=== PATIENT | female | born 1990 | race Caucasian/White ===

== ENCOUNTER 2020-01-06 06:07 | Inpatient (IN) | payer MEDICAID, SELFPAY ==
[2020-01-06] VITALS (40 sets, daily range): BP systolic 0–153; BP diastolic 0–86; PULSE 48–92; RESP 15–16; TEMP 36.6–36.8; O2SAT 98–100; BMI 28.0
[2020-01-06 07:17] LABS: Basophils # 0.1 10^3/uL (0.0-0.1); Basophils % 0.4 %; Eosinophils # 0.3 10^3/uL (0.0-0.8); Eosinophils % 2.4 %; Hematocrit 33.4 % (37.0-47.0); Hemoglobin 10.6 g/dL (11.5-15.3); Lymphocytes # 3.1 10^3/uL (0.8-4.8); Lymphocytes % 26.6 %; Mean Corpuscular HGB Conc 31.7 g/dL (30.0-36.0); Mean Corpuscular Hemoglobin 27.6 pg (28.0-34.0); Mean Platelet Volume 11.5 fL (7.4-10.4); Monocytes # 0.9 10^3/uL (0.2-0.9); Neutrophils # 7.2 10^3/uL (1.8-7.7); Neutrophils % 62.3 %; Nucleated Red Blood Cells % 0 %; Platelet Count 208 10^3/cmm (130-400); Red Blood Count 3.84 10^6/uL (4.1-5.3); Red Cell Distribution Width 13.5 % (12.1-15.1); White Blood Count 11.6 10^3/uL (4.0-10.0)
[2020-01-06] MEDS: miSOPROStol 100 mcg tablet 25 MCG VAGINAL ×3 (07:28→16:54)
--- NOTE | 2020-01-06 11:36 | PC.NURSE ---
Pt states her oldest 2 children are located in [place] and have been adopted. 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 She stated one night her children got out of the hotel room and the front counter attendant called GINNY and the children were taken into custody and she was positive for drugs. She stated she never fought to get her oldest 2 children back but stated with her last child, GINNY did a walk through of her house.
[2020-01-06] MEDS: lactated ringers 1,000 ML 999 ML IV ×2 (11:50→21:59)
--- NOTE | 2020-01-06 15:00 | PC.NURSE ---
Prescription for Macrobid called into [facility].
--- NOTE | 2020-01-06 21:44 | P.ANESUD_ITS ---
Pre-Anesthetic Update Pre-Anesthetic Assessment: Date of Surgery/Procedure: 01/06/20 Preop Rizwana gnosis: IUP Any changes to Pre-Anesthetic Assessment?: No Labs Last 48hrs: Laboratory Results - last 48 hr 01/06/20 06:35 WBC 11.6 H RBC 3.84 L Hgb 10.6 L Hct 33.4 L MCV 87.0 MCH 27.6 L MCHC 31.7 RDW 13.5 Plt Count 208 MPV 11.5 H Neut % (Auto) 62.3 Lymph % (Auto) 26.6 [place] % (Auto) 8.0 Eos % (Auto) 2.4 Baso % (Auto) 0.4 Neut # (Auto) 7.2 Lymph # (Auto) 3.1 [place] # (Auto) 0.9 Eos # (Auto) 0.3 Baso # (Auto) 0.1 Nucleated RBC % (a uto) 0 Nucleated RBCs # 0.0 Vitals: Temperature 98.2 F 01/06/20 20:30 Temperature Source Oral 01/06/20 20:30 Pulse Rate 66 01/06/20 22:17 Pulse Rhythm 01/06/20 06:37 Pulse Strength 3+ Normal 01/06/20 06:37 Respiratory Rate 16 01/06/20 20:30 Respiratory Effort Non-Labored 01/06/20 06:37 Respiratory Depth Normal 01/06/20 06:37 Respiratory Patter n 01/06/20 06:37 Blood Pressure 112/70 01/06/20 22:17 Blood Pressure Mohini n 85 01/06/20 22:17 Pulse Oximetry 98 01/06/20 22:04 Oxygen Delivery Me thod 01/06/20 06:37 Cardiac Studies: No Data to Display
--- NOTE | 2020-01-06 22:20 | ANES.PROC ---
Anesthesia Procedures Procedure/Date: 01/06/20 Epidural: Time Out Performed: Yes Consents Signed: Procedure Consent Consent: requested by attending/covering physician Lumbar Level: L3-L4 Epidural position: sitting Epidural procedure: sterile prep of area, 1% lidocaine to numb the area, 18 g needle, negative for paresthesia passed, neg for paresthesia, test dose given, 1.5% xylocaine 1:200k epi (5ml), placed PCEA, no systemic response, sterile dressing applied, L.U.D. no apparent complications and 0.2% Ropiavacaine @ mls/hr (13)
[2020-01-07] VITALS (76 sets, daily range): BP systolic 0–149; BP diastolic 0–89; PULSE 51–110; RESP 15–18; TEMP 36.7–37
[2020-01-07] MEDS: dextrose 5%-lactated ringers 1,000 ML 125 ML IV ×2 (00:38→08:03)
[2020-01-07] MEDS: oxytocin 30 UNIT/500 ML BAG IV (06:58)
--- NOTE | 2020-01-07 11:57 | PM.DELIVERY ---
 Delivery Note: Date of delivery: January 07, 2020 This 29-year-old 4 now para 4 female was admitted on 01/06/2020 for misoprostol cervical ripening for postdates . She was given a total of 3 doses of misoprostol throughout the day on the day of admission with the third dose creating increased contractions and dilatation. She was given epidural anesthesia when uncomfortable and dilated very slowly throughout the night to approximately 6 cm dilated when she was checked by this physician in the morning. Artificial rupture membranes was accomplished with Pitocin augmentation and the patient went more rapidly to complete cervical dilatation. She was found to be completely dilated at 1038 and delivered by spontaneous vaginal delivery at 1047 a healthy appearing viable male infant. Upon delivery of the head, the mouth and nose were suctioned followed by delivery of the remainder of the . The had a fairly tight nuchal cord x1 and therefore the infant was delivered with unwrapping the cord from the neck and also 1 wrap around the body at delivery time. The cried vigorously at and had Apgars of 8 and 9 at 1 and 5 minutes respectively. There was no episiotomy and no laceration and therefore no repair. Evaluation of the perineum and the vaginal vault after demonstrated no significant blood or clots. The uterus was firming up nicely. The weighed 7 pounds 2 ounces. Estimated blood loss was approximately 113 mL. Pre-Delivery Course: This patient was followed by this physician throughout her course without problems or concerns. Maternal blood type was O+ with antibody screen negative. Hepatitis B, hepatitis C, RPR and HIV were negative. Rubella was immune and group B strep was negative. The patient continued her past her EDC. We had a discussion as far as planned cervical ripening for induction purposes. The patient decided on the day of admission after considering benefits and risks. There were no other complications of the . Delivery: Spontaneous vaginal delivery. Post-Delivery Status: Patient is doing well and will be followed for routine postdelivery care. A&P Assessment and plan (1) (spontaneous vaginal delivery): No complications of labor or delivery process. She did receive epidural anesthesia and will be followed for routine postdelivery care. Status: Acute Coding Level of Care Code Acute Project Coordinator Rn for Chg Fwd Diagnoses (spontaneous vaginal delivery) O80
[2020-01-07] MEDS: docusate sodium 100 mg Capsule PO (17:48)
[2020-01-08 00:30] VITALS: BP 111/72; PULSE 69; RESP 16; TEMP 36.7
[2020-01-08 01:00] LABS: Hematocrit 27.2 % (37.0-47.0); Hemoglobin 9.2 g/dL (11.5-15.3); Mean Corpuscular HGB Conc 33.8 g/dL (30.0-36.0); Mean Corpuscular Hemoglobin 28.7 pg (28.0-34.0); Mean Corpuscular Volume 84.7 fL (81-99); Mean Platelet Volume 11.9 fL (7.4-10.4); Platelet Count 149 10^3/cmm (130-400); Red Blood Count 3.21 10^6/uL (4.1-5.3); Red Cell Distribution Width 13.3 % (12.1-15.1); White Blood Count 13.3 10^3/uL (4.0-10.0)
[2020-01-08 04:30] VITALS: BP 112/65; PULSE 58; RESP 16
[2020-01-08] MEDS: prenatal vitamin Capsule 1 CAP PO (08:12)
[2020-01-08] MEDS: docusate sodium 100 mg Capsule PO (08:12)
--- NOTE | 2020-01-08 08:22 | ANE.PACU2 ---
 Inpatient post-anesthesia follow up: Airway intact: Yes Vital signs: Temperature 98.0 F Pulse Rate 58 Respiratory Rate 16 Blood Pressure 112/65 Pulse Oximetry 98 Oxygen Delivery Me thod Room Air Oxygen Flow Rate Fraction of Inspir ed Oxygen Hydration adequate: Yes Nausea and vomiting: No Mental status: Baseline Additional Comments: No headache, no lower extremity weakness, able to urinate after tolliver removal, no signs of infection at neuraxial site
--- NOTE | 2020-01-08 08:57 | PM.DCS ---
Discharge Providers Date of Admission: 01/06/20 07:05 Date of Discharge: January 08, 2020 Attending Provider at Admission: Gio Lock MD Attending Provider at Discharge: Gio Lock MD Primary Care Provider: Gio Lock MD Diagnoses at Discharge Discharge Diagnosis (1) (spontaneous vaginal delivery): Status: Acute Problem details: Patient was admitted for induction at 40 weeks and 2 days gestation for postdates . She delivered by spontaneous vaginal delivery at 40 weeks and 3 days gestation without problems. She has had just mild lochia and is ambulating well and tolerating a regular diet. She is felt to be stable for discharge. Reason for Visit Reason for Visit: Reason For Visit: Induction Physical Exam Const: COMMON NORMALS: no apparent distress and well nourished Chest: COMMONS NORMALS: inspection of chest normal Resp: COMMON NORMALS: normal respiratory effort, no retractions and no use of accessory muscles Cardio: COMMON NORMALS: regular rate, regular rhythm and no murmurs RATE: regular rate RHYTHM: regular rhythm GI: COMMON NORMALS: normal to inspection, nondistended, normoactive bowel sounds, soft to palpation and non-tender (Fundus is firm.) PALPATION: Yes soft : COMMON NORMALS: Yes no CVA tenderness BLADDER/KIDNEY EXAM: Yes no CVA tenderness Back/Pelvis: COMMON NORMALS: no CVA tenderness and no thoracic nor lumbar tenderness Extremity: COMMON NORMALS: normal to inspection and full ROM Neuro: COMMON NORMALS: no focal motor deficits and no sensory deficits noted Psych: COMMON NORMALS: mental status grossly normal and thought process normal THOUGHT PROCESS: normal thought process Urinary Catheter Management^: Campuzano: Cath Placed During This Visit: yes Urinary Catheter Date of Insertion: 01/06/20 Urinary Catheter Time of Insertion: 23:00 Discharge Data Data Completed and Pending: Labs from last 24 hours 01/08/20 00:35 WBC 13.3 H RBC 3.21 L Hgb 9.2 L Hct 27.2 L MCV 84.7 MCH 28.7 MCHC 33.8 RDW 13.3 Plt Count 149 MPV 11.9 H Vitals: Last Vital Signs Temp 98.0 F 01/08/20 00:30 Pulse 58 L 01/08/20 04:30 Resp 16 01/08/20 04:30 BP 112/65 01/08/20 04:30 Pulse Ox 98 01/06/20 22:04 Discharge Plan Discharge Patient Disposition: Home, Self-Care Condition: Stable Prescriptions: New ibuprofen 800 mg Tablet 800 mg PO TID Qty: 90 RF: 2 docusate sodium 100 mg Capsule 100 mg PO BID Qty: 60 RF: 2 Continued Tylenol 325 mg Tablet 325 mg PO QID PRN (Reason: Pain) RF: 0 Vitamin Plus Low Iron 27 mg iron- 1 mg tablet 1 tab PO DAILY RF: 0 Discharge Orders: Discharge Order (Routine); Ordered 01/08/20 Ordered By: Gio Lock Discharge Diet: Usual diet Discharge Activity: Resume usual activity Activity Restrictions/Additional Instructions: Follow-up with Dr. Lock in 6 weeks and as needed. Discharge Attestations Time Spent in Discharge Care*: less than 30 min Quality Metrics Clinical Quality Measures During this hospital stay, did patient experience: None Coding Level of Care Code Acute Windows Vmware Administrator for Chg Fwd Exam Comprehensive Diagnoses (spontaneous vaginal delivery) O80
[2020-01-08 10:11] VITALS: BP 131/84; PULSE 67; RESP 17; TEMP 36.9
[2020-01-08 12:00] VITALS: BP 131/84; PULSE 66; RESP 18; TEMP 36.8
[2020-01-08 12:31] VITALS: BP 131/84; PULSE 66; RESP 18; TEMP 36.8
== END 2020-01-08 12:30 | disposition home or self-care (01) | DRG 807 ==
PROVIDERS: Admitting Provider Family Medicine; Family Provider Family Medicine; PCP Family Medicine; Visit Provider Family Medicine
DX: O48.0 Post-term pregnancy (principal); Z37.0 Single live birth; Z3A.40 40 weeks gestation of pregnancy; O69.81X0 Labor and delivery complicated by cord around neck, without compression, not applicable or unspecified
CPT/HCPCS: 12345; 36415; 51702; 59025; 59409; 85025; 85027; 99211; G0378; G0379; J2795

== ENCOUNTER 2021-09-19 08:14 | Inpatient (IN) | payer MEDICAID, SELFPAY ==
[2021-09-19] VITALS (27 sets, daily range): BP systolic 108–146; BP diastolic 56–87; PULSE 63–94; RESP 16; TEMP 36–37.1; O2SAT 97–98; BMI 28.0
[2021-09-19] MEDS: miSOPROStol 100 mcg tablet 25 MCG VAGINAL ×2 (09:14→13:32)
--- NOTE | 2021-09-19 09:14 | PM.OPHPUD ---
Labor & Delivery H&P Update Date of Procedure: September 19, 2021 Date H&P Performed: 09/16/21 H&P update information: I have reviewed H&P completed within last 30 days, I have examined patient prior to procedure and No changes to prior documentation Admission Diagnosis: Preop diagnosis: IUP Primary indication for procedure: term Planned procedure: vaginal delivery after induction.
[2021-09-19 09:40] LABS: Basophils % 0.3 %; Eosinophils # 0.2 10^3/uL (0.0-0.8); Hematocrit 33.5 % (37.0-47.0); Lymphocytes # 2.7 10^3/uL (0.8-4.8); Lymphocytes % 22.8 %; Mean Corpuscular HGB Conc 32.8 g/dL (30.0-36.0); Mean Corpuscular Hemoglobin 28.9 pg (28.0-34.0); Mean Corpuscular Volume 88.2 fl (81-99); Mean Platelet Volume 11.5 fL (7.4-10.4); Monocytes # 0.9 10^3/uL (0.2-0.9); Monocytes % 7.4 %; Neutrophils # 7.78 10^3/uL (1.8-7.7); Nucleated Red Blood Cells % 0 %; Platelet Count 193 10^3/cmm (130-400); Red Cell Distribution Width 13.2 % (12.1-15.1); White Blood Count 11.6 10^3/uL (4.0-10.0)
[2021-09-19] MEDS: lactated ringers 1,000 ML 999 ML IV (16:07)
--- NOTE | 2021-09-19 16:20 | P.ANESASSM_ITS ---
Pre-Anesthetic Assessment Pre-Anesthetic Assessment: Height/Weight: Height 1.75 m Weight 86.183 kg Temp Pulse BP 97.5 F L 76 133/87 09/19/21 15:25 09/19/21 15:56 09/19/21 15:56 Preop Diagnosis: IUP Proposed Procedure: epidural Familial anesthetic complications: none Was Beta Nory taken within 24 hours: N/A Was Clonidine taken within 24 hours: N/A Social: Social History: Tobacco and No alcohol Packs per day: 0.5 Exam: Pre-Anes Outpt Exam: alert, oriented x 3, clear to auscultation bilaterally and regular rate & rhythm Airway: Submandibular: WNL Cervical ROM: WNL MP: 2 Dentition: Full Pulmonary: Pulmonary: None reported CV/HEM: CV/HEM: None reported : : None reported Hepatic: Hepatic: None reported GI: GI: GERD Metabolic: Metabolic: None reported Musc/skel: Musc/skel: None reported Neuropsych: Neuropsych: None reported Anesthetic Plan: ASA status: 2 Anesthesia: Regional (specify below) Risk of > 500 ml blood loss (7ml/kg in children): No Meds/Allergies Current Medications: Current Medications Generic Name Dose Route Start Last Admin Trade Name Freq PRN Reason Stop Dose Admin Ropivacaine 200 mg in 100 mls @ 13 mls/hr 09/19/21 16:00 09/19/21 16:17 Naropin Premix EPIDURAL 13 mls/hr .[id number] JANN Administration Lactated Ringer's 1,000 mls @ 999 m ls/hr 09/19/21 15:56 09/19/21 16:07 Lactated Ringers IV 999 mls/hr .Q1H1M PRN Administration See label comment s PFSH Anesthesia PFSH: Social History Smoking and tobacco status: current every day smoker cigarettes Packs smoked per day: 0.5 Second hand smoke exposure: Yes Smoking risk assessment/counseling performed?: Yes Female Reproductive History: : 6 Data Anesthesia CBC & Chem 7: 09/19/21 08:50 Other Labs: Laboratory Results - last 48 hr 09/19/21 08:50 WBC 11.6 H RBC 3.80 L Hgb 11.0 L Hct 33.5 L MCV 88.2 MCH 28.9 MCHC 32.8 RDW 13.2 Plt Count 193 MPV 11.5 H Neut % (Auto) 67.0 Lymph % (Auto) 22.8 [place] % (Auto) 7.4 Eos % (Auto) 2.0 Baso % (Auto) 0.3 Neut # (Auto) 7.78 H Lymph # (Auto) 2.7 [place] # (Auto) 0.9 Eos # (Auto) 0.2 Baso # (Auto) 0.0 Nucleated RBC % (auto) 0 Nucleated RBCs # 0.0 Cardiac Studies: No Data to Display
--- NOTE | 2021-09-19 16:47 | PM.DELIVERY ---
Delivery Note: Date of delivery: September 19, 2021 Pre-Delivery Course: 31-year-old 6 now para 5 female at 39-3/7 weeks gestation was followed by this physician throughout her . Maternal blood type was O+ with antibody screen negative. Her rubella was immune and group B strep and Covid were both negative. She was admitted on the date of delivery in the morning for misoprostel cervical ripening for induction purposes. This was done as she was at term term and with it getting close to the holidays there was concern with family issues. Delivery: Patient was admitted in the morning and given misoprostel 25 mcg x 2 doses. The second dose was about 1330 and prior to that she was just having irregular, light contractions by her report. Sometime after the second dose of Cytotec she began having stronger contractions and was discussing with anesthesia regarding epidural anesthesia when she had spontaneous rupture of membranes. Prior to that she was approximately 3 cm dilated. She then very rapidly dilated to complete cervical dilatation. This physician was called at home and by the time I arrived the infant had delivered precipitously. The infant did very well at delivery with a hand in front of the face according to nursing. Time of delivery was 1624. The was suctioned and laid on mother's abdomen where the umbilical cord was clamped and cut. Blood was collected for cord blood testing purposes. I arrived shortly thereafter with evaluation finding only a couple of very small periurethral lacerations and the placenta still in utero. The placenta delivered spontaneously at 1633. The perineum and vaginal vault were then inspected with no problems with no problems noted and no lacerations. With fundal massage the vaginal vault was cleared of a few clots but there was no significant bleeding. Infant Apgars were 9 and 9 at 1 and 5 minutes respectively. Estimated blood loss approximately 187 mL. Post-Delivery Status: It extremely well through the labor and delivery process. She is having minimal bleeding at this time and will be followed for routine postdelivery care. A&P Assessment and plan (1) Normal spontaneous vaginal delivery: Plan to follow through routine postdelivery care. We will adjust orders as necessary. Status: Acute Coding Level of Care Code Acute Power Plant Operator for [place] Diagnoses Normal spontaneous vaginal delivery O80
[2021-09-19] MEDS: docusate sodium 100 mg Capsule PO (17:30)
[2021-09-19] MEDS: ibuprofen 800 mg tablet PO (21:22)
[2021-09-20 00:15] VITALS: BP 118/74; PULSE 66; TEMP 37.2; O2SAT 97
[2021-09-20] MEDS: benzocaine-menthol 78 gm Canister 1 SPRAY TOPICAL (00:40)
[2021-09-20] MEDS: lanolin oint 7 gm 1 APPLIC TOPICAL ×2 (00:41→17:16)
[2021-09-20 02:15] VITALS: BP 117/75; PULSE 67; TEMP 36.9; O2SAT 98
[2021-09-20 04:35] LABS: Hemoglobin 9.8 g/dL (11.5-15.3); Mean Corpuscular HGB Conc 32.7 g/dL (30.0-36.0); Mean Corpuscular Hemoglobin 28.6 pg (28.0-34.0); Mean Corpuscular Volume 87.5 fl (81-99); Mean Platelet Volume 11.4 fL (7.4-10.4); Platelet Count 170 10^3/cmm (130-400); Red Blood Count 3.43 10^6/uL (4.1-5.3); Red Cell Distribution Width 12.9 % (12.1-15.1); White Blood Count 13.6 10^3/uL (4.0-10.0)
[2021-09-20 06:20] VITALS: BP 123/84; PULSE 71; TEMP 36.8; O2SAT 99
--- NOTE | 2021-09-20 07:40 | PM.OBGYDC ---
Discharge Providers EVENTS ADMINISTRATIVE ASSISTANT Date of Admission: 09/19/21 08:14 Date of Discharge: 09/20/21 Attending Provider at Admission: Gio Lock MD Attending Provider at Discharge: Gio Lock MD Primary Care Provider: Gio Lock MD Diagnoses at Discharge Discharge Diagnosis (1) Normal spontaneous vaginal delivery: Status: Acute Reason for Visit Reason for Visit: Full induction Hospital Course Hospital Course Patient delivered by spontaneous vaginal delivery yesterday evening. She has done well since delivery with breast-feeding very well. She has had just mild lochia with no significant clots or significant cramping. She is felt to be stable for discharge this evening after infant's metabolic screen. Information Peripartum Data: Infant Delivery Method: Vaginal Physical Exam Const: COMMON NORMALS: no acute distress, patient oriented x3 and healthy appearing GENERAL APPEARANCE: cooperative, comfortable and well hydrated HENMT: COMMON NORMALS: moist oral mucous membranes Resp: COMMON NORMALS: normal respiratory effort, No retractions, No use of accessory muscles and clear to auscultation bilaterally AUSCULTATION: clear to auscultation bilaterally Cardio: COMMON NORMALS: regular rate, regular rhythm and No murmurs present (Cardio) RATE: regular rate RHYTHM: regular rhythm GI: COMMON NORMALS: Normal to inspection, nondistended, normoactive bowel sounds present, Soft to palpation and non-tender (Fundus is firm and well below the umbilicus.) PALPATION: Yes Soft to palpation : COMMON NORMALS: Yes no CVA tenderness BLADDER/KIDNEY EXAM: Yes no CVA tenderness Back/Pelvis: COMMON NORMALS: no CVA tenderness Extremity: COMMON NORMALS: normal to inspection, full ROM, capillary refill normal, no clubbing, cyanosis or edema and no calf tenderness Neuro: COMMON NORMALS: patient oriented x3, no focal motor deficits and no sensory deficits noted Psych: COMMON NORMALS: mental status grossly normal, cooperative and normal affect Skin: COMMON NORMALS: no rashes or lesions noted GENERAL SKIN EXAM: no rashes or lesions noted Discharge Data Data Completed and Pending: Labs from last 24 hours 09/20/21 09/19/21 04:27 08:50 WBC 13.6 H 11.6 H RBC 3.43 L 3.80 L Hgb 9.8 L 11.0 L Hct 30.0 L 33.5 L MCV 87.5 88.2 MCH 28.6 28.9 MCHC 32.7 32.8 RDW 12.9 13.2 Plt Count 170 193 MPV 11.4 H 11.5 H Neut % (Auto) 67.0 Lymph % (Auto) 22.8 [place] % (Auto) 7.4 Eos % (Auto) 2.0 Baso % (Auto) 0.3 Neut # (Auto) 7.78 H Lymph # (Auto) 2.7 [place] # (Auto) 0.9 Eos # (Auto) 0.2 Baso # (Auto) 0.0 Nucleated RBC % (a uto) 0 Nucleated RBCs # 0.0 Vitals: Last Vital Signs Temp 98.3 F 09/20/21 06:20 Pulse 71 09/20/21 06:20 Resp 16 09/19/21 20:15 BP 123/84 09/20/21 06:20 Pulse Ox 99 09/20/21 06:20 Discharge Plan Discharge Patient Disposition: Home Condition: Stable Prescriptions: New docusate sodium 100 mg Capsule 100 mg PO BID Qty: 60 RF: 1 ibuprofen 800 mg Tablet 800 mg PO TID Qty: 90 RF: 2 Continued acetaminophen [Tylenol] 325 mg Tablet 325 mg PO QID PRN (Reason: Pain) RF: 0 Vitamin Plus Low Iron 27 mg iron- 1 mg tablet 1 tab PO DAILY RF: 0 Discontinued ibuprofen 800 mg Tablet 800 mg PO TID Qty: 90 RF: 2 docusate sodium 100 mg Capsule 100 mg PO BID Qty: 60 RF: 2 Discharge Orders: Discharge Order (Routine); Ordered 09/20/21 Ordered By: Gio Lock Referrals: Gio Lock MD [Primary Care Provider] - 6 Weeks Discharge Diet: Usual diet Discharge Activity: Resume usual activity Patient Instructions: Opioid Safety Discharge Attestations EVENTS ADMINISTRATIVE ASSISTANT Time Spent in Discharge Care*: less than 30 min Specific Discharge Activities: Specific discharge activities: educating patient, documenting/other paperwork and evaluating patient/reviewing data Coding Level of Care Code Acute Concession Stand Attendant for Chg Fwd Diagnoses Normal spontaneous vaginal delivery O80
[2021-09-20] MEDS: prenatal vitamin Capsule 1 CAP PO (09:19)
[2021-09-20] MEDS: docusate sodium 100 mg Capsule PO ×2 (09:19→17:16)
[2021-09-20] MEDS: ibuprofen 800 mg tablet PO ×2 (09:19→15:29)
[2021-09-20 09:21] VITALS: BP 118/74; PULSE 65; RESP 16; TEMP 36.9
[2021-09-20 15:29] VITALS: BP 121/79; PULSE 66; RESP 15; TEMP 36.9; O2SAT 98
[2021-09-20 17:00] VITALS: BP 123/87; PULSE 83; RESP 17; TEMP 36.4
== END 2021-09-20 17:29 | disposition home or self-care (01) | DRG 807 ==
PROVIDERS: Admitting Provider Family Medicine; PCP Family Medicine; Visit Provider Family Medicine
DX: O62.3 Precipitate labor (principal); Z37.0 Single live birth; O99.334 Smoking (tobacco) complicating childbirth; F17.210 Nicotine dependence, cigarettes, uncomplicated; Z3A.39 39 weeks gestation of pregnancy
CPT/HCPCS: 36415; 59025; 59409; 85025; 85027; 98960; 99211; J2795

== ENCOUNTER 2022-07-27 15:10 | Emergency (ER) | payer MEDICAID, SELFPAY ==
[2022-07-27 15:31] VITALS: BMI 25.1
[2022-07-27 15:36] VITALS: BP 133/83; PULSE 90; RESP 18; TEMP 36.8; O2SAT 99
--- NOTE | 2022-07-27 17:11 | W.ED.ABDPA2 ---
HPI - Abdominal Pain General: Chief Complaint: Abdominal Pain Stated Complaint: abd pain Time Seen by Provider: 07/27/22 16:52 History of Present Illness: 32 F w/ abdominal pain. Patient notes onset of abdominal pain last night. She describes it as epigastric. And severe. Pain has now improved. She notes the pain was associated with nausea and vomiting. No prior history of similar no associated diarrhea. Does take 800 mg ibuprofen regularly. No prior history of ulcers. She denies dysuria or polyuria. She denies flank pain. She denies fevers or chills. Significant surgical history includes appendectomy. Related Data: Date of Last Menstrual Period: 07/24/22 Review of Systems General: Reports: 10 or more systems reviewed and unremarkable except in HPI and below PFSH ED PFSH: Social History Smoking and tobacco status: current every day smoker cigarettes Packs smoked per day: 0.5 Second hand smoke exposure: Yes Smoking risk assessment/counseling performed?: Yes Female Reproductive History: Date of last menstrual period: 07/24/22 Physical Exam Const: COMMON NORMALS: no acute distress, patient oriented x3 and alert GENERAL APPEARANCE: cooperative ORIENTATION/CONSCIOUSNESS: Yes awake, Yes oriented to person, Yes oriented to place and Yes oriented to time HENMT: COMMON NORMALS: normocephalic, atraumatic, external ears normal, Normal external nose present and moist oral mucous membranes HEAD & SCALP: normal to inspection, normocephalic and atraumatic NOSE: Normal external nose present GENERAL EAR: hearing grossly impaired EXTERNAL EAR: Yes external ears normal Eye: COMMON NORMALS: Equal, round and reactive pupils present, EOMs intact bilaterally, conjunctivae normal and no scleral icterus GENERAL EYE: appearance normal, both eyes and all related structures EYELID: eyelids normal CONJUNCTIVA: Yes conjunctivae normal SCLERA: sclerae normal PUPIL: Yes Equal, round and reactive pupils present Neck/C-Spine: COMMON NORMALS: full ROM, supple and no JVD GENERAL: Yes normal visual inspection Lymph: LYMPHATIC: no lymphadenopathy noted and no lymphedema noted Chest: COMMONS NORMALS: normal inspection of the chest Resp: COMMON NORMALS: normal respiratory effort, No retractions and No use of accessory muscles Cardio: COMMON NORMALS: no JVD, regular rate and regular rhythm RATE: regular rate RHYTHM: regular rhythm GI: COMMON NORMALS: Normal to inspection, nondistended, normoactive bowel sounds present : COMMON NORMALS: Yes no CVA tenderness BLADDER/KIDNEY EXAM: Yes no CVA tenderness Back/Pelvis: COMMON NORMALS: no CVA tenderness and thoracic and lumbar spine normal to inspection Extremity: COMMON NORMALS: normal to inspection, full ROM and capillary refill normal GENERAL: Yes normal exam except as noted Neuro: COMMON NORMALS: patient oriented x3, CN's II-XII intact bilaterally, moves all extremities, no focal motor deficits, no sensory deficits noted and gait normal SENSORIUM/ORIENTATION: Yes alert, Yes oriented to person, Yes oriented to place and Yes oriented to time Psych: COMMON NORMALS: mental status grossly normal, Normal thought process present, cooperative and normal affect THOUGHT PROCESS: Normal thought process present Skin: COMMON NORMALS: no rashes or lesions noted and no wounds GENERAL SKIN EXAM: no rashes or lesions noted Course Vital Signs: Vital signs: Vital Signs Temperature 98.2 F 07/27/22 15:36 Pulse Rate 90 07/27/22 15:36 Respiratory Rate 18 07/27/22 15:36 Blood Pressure 133/83 07/27/22 15:36 Pulse Oximetry 99 07/27/22 15:36 Oxygen Delivery Me thod 07/27/22 15:36 MDM - Abdominal Pain Medical Decision Making 32-year-old female presenting today with abdominal pain. Abdominal exam is benign and not suggestive of acute life-threatening pathology. Vitals are within normal limits. Suspect gastritis versus gastric ulcer. Will place patient on Carafate and omeprazole for the same. Patient was given strict return precautions and recommended routine outpatient follow-up. Lab Data : 07/27/22 17:05 07/27/22 17:05 Labs/Radiology: Laboratory Results WBC 5.4 10^3/uL (4.0-10.0) 07/27/22 17:05 RBC 4.20 10^6/uL (4.1-5.3) 07/27/22 17:05 Hgb 11.6 g/dL (11.5-15.3) 07/27/22 17:05 Hct 36.2 % (37.0-47.0) L 07/27/22 17:05 MCV 86.2 fl (81-99) 07/27/22 17:05 MCH 27.6 pg (28.0-34.0) L 07/27/22 17:05 MCHC 32.0 g/dL (30.0-36.0) 07/27/22 17:05 RDW 13.2 % (12.1-15.1) 07/27/22 17:05 Plt Count 204 10^3/cmm (130-400) 07/27/22 17:05 MPV 11.1 fL (7.4-10.4) H 07/27/22 17:05 Neut % (Auto) 36.6 % 07/27/22 17:05 Lymph % (Auto) 45.3 % 07/27/22 17:05 [place] % (Auto) 6.8 % 07/27/22 17:05 Eos % (Auto) 10.7 % 07/27/22 17:05 Baso % (Auto) 0.6 % 07/27/22 17:05 Neut # (Auto) 1.98 10^3/uL (1.8-7.7) 07/27/22 17:05 Lymph # (Auto) 2.5 10^3/uL (0.8-4.8) 07/27/22 17:05 [place] # (Auto) 0.4 10^3/uL (0.2-0.9) 07/27/22 17:05 Eos # (Auto) 0.6 10^3/uL (0.0-0.8) 07/27/22 17:05 Baso # (Auto) 0.0 10^3/uL (0.0-0.1) 07/27/22 17:05 Nucleated RBC % (auto) 0 % 07/27/22 17:05 Nucleated RBCs # 0.0 /100WBC 07/27/22 17:05 Sodium 137 mmol/L (136-145) 07/27/22 17:05 Potassium 3.6 mmol/L (3.5-5.1) 07/27/22 17:05 Chloride 99 mmol/L (98-107) 07/27/22 17:05 Carbon Dioxide 30 mmol/L (22-29) H 07/27/22 17:05 Anion Gap 11.6 (5-19) 07/27/22 17:05 BUN 11 mg/dL (6-20) 07/27/22 17:05 Creatinine 0.6 mg/dL (0.5-0.9) 07/27/22 17:05 GFR Calculation 115.1 mL/min (90-130) 07/27/22 17:05 Glucose 63 mg/dL (65-115) L 07/27/22 17:05 Calculated Osmolality 281 mOsm/kg (285-295) L 07/27/22 17:05 Calcium 9.3 mg/dL (8.5-10.5) 07/27/22 17:05 Total Bilirubin 0.2 mg/dL (0.15-1.2) 07/27/22 17:05 AST 20 U/L (0-32) 07/27/22 17:05 ALT 17 U/L (0-33) 07/27/22 17:05 Alkaline Phosphatase 84 U/L (35-105) 07/27/22 17:05 Total Protein 7.7 g/dL (6.6-8.7) 07/27/22 17:05 Albumin 4.2 g/dL (3.5-5.2) 07/27/22 17:05 Globulin 3.5 g/dL (1.3-4.6) 07/27/22 17:05 Lipase 27 U/L (13-60) 07/27/22 17:05 Discharge Plan Discharge Patient Disposition: Home Clinical Impression: Abdominal pain Condition: Stable Prescriptions: New Carafate 1 gram tablet 1 g PO TID 28 Days Qty: 84 0RF omeprazole 40 mg capsule,delayed release(DR/EC) 40 mg PO BID Qty: 30 0RF No Action ibuprofen 800 mg tablet 800 mg PO TID Qty: 90 2RF amoxicillin 875 mg tablet 875 mg PO BID Qty: 20 0RF acetaminophen [Tylenol] 325 mg Tablet 325 mg PO QID PRN (Reason: Pain) Vitamin Plus Low Iron 27 mg iron- 1 mg tablet 1 tab PO DAILY docusate sodium 100 mg Capsule 100 mg PO BID Qty: 60 1RF Discharge Orders: Discharge ED (Routine); Ordered 07/27/22 Ordered By: Mauri Hobson Referrals: Gio Lock MD [Primary Care Provider] - Patient Instructions: Abdominal Pain (ED) Coding Level of Care Code ED Production Maintenance Technician for Chg Fwd Exam Comprehensive
[2022-07-27 17:18] LABS: Basophils % 0.6 %; Eosinophils # 0.6 10^3/uL (0.0-0.8); Eosinophils % 10.7 %; Hematocrit 36.2 % (37.0-47.0); Hemoglobin 11.6 g/dL (11.5-15.3); Lymphocytes # 2.5 10^3/uL (0.8-4.8); Lymphocytes % 45.3 %; Mean Corpuscular Hemoglobin 27.6 pg (28.0-34.0); Mean Corpuscular Volume 86.2 fl (81-99); Mean Platelet Volume 11.1 fL (7.4-10.4); Monocytes # 0.4 10^3/uL (0.2-0.9); Monocytes % 6.8 %; Neutrophils # 1.98 10^3/uL (1.8-7.7); Neutrophils % 36.6 %; Nucleated Red Blood Cells % 0 %; Platelet Count 204 10^3/cmm (130-400); Red Cell Distribution Width 13.2 % (12.1-15.1); White Blood Count 5.4 10^3/uL (4.0-10.0)
[2022-07-27] MEDS: lidocaine 2% viscous 15 ML, aluminum-mag hydrox-simethicon 30 ML, sucralfate oral liq 1 GM PO (17:21)
[2022-07-27 17:35] LABS: Alanine Aminotransferase 17 U/L (0-33); Albumin Level 4.2 g/dL (3.5-5.2); Alkaline Phosphatase 84 U/L (35-105); Anion Gap 11.6 (5-19); Aspartate Amino Transferase 20 U/L (0-32); Blood Urea Nitrogen 11 mg/dL (6-20); Calcium 9.3 mg/dL (8.5-10.5); Carbon Dioxide 30 mmol/L (22-29); Chloride 99 mmol/L (98-107); Creatinine Clr Calc Pharmacy 148.5609; Globulin 3.5 g/dL (1.3-4.6); Glomerular Filtration Rate 115.1 mL/min (90-130); Glucose 63 mg/dL (65-115); Lipase 27 U/L (13-60); Osmolality Calculated 281 mOsm/kg (285-295); Potassium 3.6 mmol/L (3.5-5.1); Sodium 137 mmol/L (136-145); Total Bilirubin 0.2 mg/dL (0.15-1.2); Total Protein 7.7 g/dL (6.6-8.7)
== END 2022-07-27 18:28 | disposition home or self-care (01) ==
PROVIDERS: Emergency Provider Emergency Medicine; PCP Family Medicine
DX: R10.9 Unspecified abdominal pain (principal)
CPT/HCPCS: 80053; 83690; 85025; 99283

== ENCOUNTER → 2022-12-17 11:09 | Outpatient (BNVA) | payer MEDICAID, SELFPAY | PROVIDERS: PCP Family Medicine; Visit Provider Nurse Practitioner Family | DX: R21 Rash and other nonspecific skin eruption (principal) | CPT/HCPCS: 87255 ==

== ENCOUNTER 2024-11-04 23:40 | Emergency (ER) | payer MEDICAID, SELFPAY ==
[2024-11-05] VITALS (20 sets, daily range): BP systolic 97–144; BP diastolic 49–82; PULSE 56–75; RESP 14–18; TEMP 36.8; O2SAT 95–100
--- NOTE | 2024-11-05 01:13 | ED_ITS ---
HPI - 2 General: Chief complaint: Vaginal Bleeding Stated complaint: Miscarrage Time Seen by Provider: 11/05/24 01:10 History of Present Illness: Patient presents to the ER with complaints of vaginal bleeding. Patient has a positive and ultrasound done a couple weeks ago by her OB Dr. Fajardo in [place]. At that time the baby measured several weeks smaller than estimated per her last menstrual period he said she may be having intrauterine demise and to come back in a couple weeks for ultrasound. Per the patient she should have been about 10 weeks gestation and the ultrasound showed in the vicinity of 7 weeks. But since then over the last 5 days she started spotting daily and that she had a large amount of blood and clots passed tonight. Patient was sitting on the toilet where she got lightheaded dizzy but did not pass out so she came to the ER to be evaluated. Related Data Home Medications Medication Instructions Recorded Confirmed acetaminophen 325 mg tablet 325 mg PO QID PRN Pain 01/06/20 12/17/22 (Tylenol) vitamin with calcium 1 tab PO DAILY 01/06/20 12/17/22 no.72-iron 27 mg-folic acid 1 mg tablet ( Vitamins Plus Low Iron) Previous Rx's Medication Instructions Recorded docusate sodium 100 mg capsule 100 mg PO BID #60 caps 09/20/21 amoxicillin 875 mg tablet 875 mg PO BID #20 tabs 11/18/21 ibuprofen 800 mg tablet 800 mg PO TID #90 tabs 11/18/21 omeprazole 40 mg capsule,delayed 40 mg PO BID #30 caps 07/27/22 release acyclovir 400 mg tablet 400 mg PO TID #21 tabs 12/17/22 triamcinolone acetonide 0.1 % 1 applic topical BID #15 grams 12/17/22 topical cream Allergies Allergy/AdvReac Type Severity Reaction Status Date / Time No Known Drug Allergies Allergy Unknown Verified 11/05/24 00:09 Review of Systems 2 General: Reports: 10 or more systems reviewed and unremarkable except in HPI and below PFSH ED 2 PFSH: Social History Smoking and tobacco/nicotine status: current every day tobacco/nicotine user cigarettes Packs smoked per day: 0.5 Second hand smoke exposure: Yes Physical Exam 2 Const: COMMON NORMALS: no acute distress, average body habitus, patient oriented x3, no limitations, healthy appearing, alert and well nourished HENMT: COMMON NORMALS: normocephalic, atraumatic, hearing grossly normal bilaterally, external ears normal, Normal external nose present and moist oral mucous membranes HEAD & SCALP: normocephalic and atraumatic NOSE: Normal external nose present EXTERNAL EAR: Yes external ears normal Neck/C-Spine: COMMON NORMALS: no JVD Chest: COMMONS NORMALS: normal inspection of the chest and normal palpation of entire chest wall Resp: COMMON NORMALS: normal respiratory effort, No retractions, No use of accessory muscles and clear to auscultation bilaterally AUSCULTATION: clear to auscultation bilaterally Cardio: COMMON NORMALS: no JVD, regular rate, regular rhythm, S1 normal heart sound present, S2 normal heart sound present, No gallops present (Cardio), No clicks present (Cardio), No murmurs present (Cardio) and No rub (Cardio) R ATE: regular rate RHYTHM: regular rhythm HEART SOUNDS: S1 normal heart sound present and S2 normal heart sound present GI: COMMON NORMALS: Normal to inspection, nondistended, normoactive bowel sounds present, Soft to palpation, non-tender, No hepatosplenomegaly present and no masses PALPATION: Yes Soft to palpation and Yes No hepatosplenomegaly present Neuro: COMMON NORMALS: patient oriented x3 SENSORIUM/ORIENTATION: Yes alert Course 2 Vital Signs: Vital signs: Vital Signs Temperature 98.2 F 11/05/24 00:08 Pulse Rate 72 11/05/24 02:00 Respiratory Rate 14 11/05/24 00:08 Blood Pressure 99/49 11/05/24 03:45 Pulse Oximetry 97 11/05/24 03:45 Oxygen Delivery Me thod Room Air 11/05/24 02:00 MDM - OB/Uterine Contractions Medical Decision Making Lab work was obtained as well as an ultrasound, preliminary ultrasound showed no fetus or heart tones. This was discussed with the patient that she probably having miscarriage. Patient understands patient will be discharged home Medical Records I reviewed the patient's medical records. Lab Data I reviewed the patient's lab results. 11/05/24 01:10 11/05/24 01:10 Laboratory Results WBC 8.12 10^3/uL (3.29-11.43) 11/05/24 01:10 RBC 4.06 10^6/uL (3.85-5.65) 11/05/24 01:10 Hgb 10.90 g/dL (11.27-16.99) L 11/05/24 01:10 Hct 35.4 % (36-47) L 11/05/24 01:10 MCV 87.2 fl (85-98) 11/05/24 01:10 MCH 26.8 pg (27-33) L 11/05/24 01:10 MCHC 30.8 g/dL (30-55) 11/05/24 01:10 RDW 12.8 % (12.1-15.1) 11/05/24 01:10 Plt Count 192 10^3/cmm (157-399) 11/05/24 01:10 MPV 11.1 fL (7.4-10.4) H 11/05/24 01:10 Neut % (Auto) 52.2 % 11/05/24 01:10 Lymph % (Auto) 36.9 % 11/05/24 01:10 [place] % (Auto) 5.7 % 11/05/24 01:10 Eos % (Auto) 4.7 % 11/05/24 01:10 Baso % (Auto) 0.4 % 11/05/24 01:10 Neut # (Auto) 4.24 10^3/uL (1.8-7.7) 11/05/24 01:10 Lymph # (Auto) 3.0 10^3/uL (0.8-4.8) 11/05/24 01:10 [place] # (Auto) 0.5 10^3/uL (0.2-0.9) 11/05/24 01:10 Eos # (Auto) 0.4 10^3/uL (0.0-0.8) 11/05/24 01:10 Baso # (Auto) 0.0 10^3/uL (0.0-0.1) 11/05/24 01:10 Nucleated RBC % (auto) 0 % 11/05/24 01:10 Nucleated RBCs # 0.0 /100WBC 11/05/24 01:10 Sodium 134 mmol/L (136-145) L 11/05/24 01:10 Potassium 3.7 mmol/L (3.5-5.1) 11/05/24 01:10 Chloride 97 mmol/L (98-107) L 11/05/24 01:10 Carbon Dioxide 24 mmol/L (22-29) 11/05/24 01:10 Anion Gap 16.7 (5-19) 11/05/24 01:10 BUN 11 mg/dL (6-20) 11/05/24 01:10 Creatinine 0.7 mg/dL (0.5-0.9) 11/05/24 01:10 GFR Calculation 95.2 mL/min (90-130) 11/05/24 01:10 Glucose 123 mg/dL (65-115) H 11/05/24 01:10 Calculated Osmolality 279 mOsm/kg (285-295) L 11/05/24 01:10 Calcium 9.2 mg/dL (8.5-10.5) 11/05/24 01:10 Total Bilirubin 0.2 mg/dL (0.15-1.2) 11/05/24 01:10 AST 15 U/L (0-32) 11/05/24 01:10 ALT 12 U/L (0-33) 11/05/24 01:10 Alkaline Phosphatase 106 U/L (35-105) H 11/05/24 01:10 Total Protein 7.6 g/dL (6.6-8.7) 11/05/24 01:10 Albumin 4.4 g/dL (3.5-5.2) 11/05/24 01:10 Globulin 3.2 g/dL (1.3-4.6) 11/05/24 01:10 Ser , Semi-Qnt 2018.00 mIU/mL 11/05/24 01:10 Urine Color Yellow (Yellow) 11/05/24 03:17 Urine Appearance Clear (CLEAR) 11/05/24 03:17 Urine pH 5.0 (5-7) 11/05/24 03:17 Ur Specific [place] 1.029 (1.005-1.030) 11/05/24 03:17 Urine Protein Negative (Negative) 11/05/24 03:17 Urine Glucose (UA) Negative (Normal) 11/05/24 03:17 Urine Ketones Trace (Negative) 11/05/24 03:17 Urine Blood 3+ (Negative) A 11/05/24 03:17 Urine Nitrate Negative (Negative) 11/05/24 03:17 Urine Bilirubin Negative (Negative) 11/05/24 03:17 Urine Urobilinogen 1.0 mg/dL (Negative) 11/05/24 03:17 Ur Leukocyte Esterase Negative (Negative) 11/05/24 03:17 Urine RBC >100 /hpf (0-2) H 11/05/24 03:17 Urine WBC 0-5 /hpf (0-5) 11/05/24 03:17 Ur Squamous Epith Cells 0-5 /hpf (0-5) 11/05/24 03:17 Amorphous Sediment Not Reportable 11/05/24 03:17 Urine Bacteria None seen /hpf (NONE) 11/05/24 03:17 Hyaline Casts 0.81 /lpf 11/05/24 03:17 Blood Type O Positive 11/05/24 01:10 Rho(D) Type Rh positive 11/05/24 01:10 Antibody Screen Negative 11/05/24 01:10 All radiology interpretation(s) finalized by discharge Discharge Plan Discharge Patient Disposition: Home Clinical Impression: Miscarriage Condition: Stable Prescriptions: No Action ibuprofen 800 mg tablet 800 mg PO TID Qty: 90 2RF amoxicillin 875 mg tablet 875 mg PO BID Qty: 20 0RF triamcinolone acetonide 0.1 % cream 1 applic topical BID Qty: 15 0RF acyclovir 400 mg tablet 400 mg PO TID Qty: 21 0RF acetaminophen [Tylenol] 325 mg Tablet 325 mg PO QID PRN (Reason: Pain) Vitamin Plus Low Iron 27 mg iron- 1 mg tablet 1 tab PO DAILY docusate sodium 100 mg Capsule 100 mg PO BID Qty: 60 1RF omeprazole 40 mg capsule,delayed release(DR/EC) 40 mg PO BID Qty: 30 0RF Discharge Orders: Discharge ED (Routine); Ordered 11/05/24 Ordered By: Donavan Velazquez Referrals: Gio Lock MD [Primary Care Provider] - 1 week Patient Instructions: Miscarriage (ED) Activity Restrictions/Additional Instructions: Preliminary report of your ultrasound did not show any obvious fetus or heart rate, this is consistent with a miscarriage. When the ultrasound is read by the radiologist if they see anything different we will give you a call as this may change treatment. Thank you for choosing [facility] for your healthcare needs today. Please realize that you were seen in the emergency department and that we are providing you with an emergency medical screening exam and this may not be a complete and all exclusive of all testing and/or medical workup we may need to determine your element or severity of your illness. It is very important that you follow-up as instructed with your primary care provider or specialist for the additional evaluation and to discuss your medical treatment plan. You may return to the emergency department should you have concerns or if your condition changes or worsens in any way. Coding Level of Care Code ED Clinical Academic Allergist for [place]
[2024-11-05 01:33] LABS: Basophils % 0.4 %; Eosinophils # 0.4 10^3/uL (0.0-0.8); Eosinophils % 4.7 %; Hematocrit 35.4 % (36-47); Lymphocytes % 36.9 %; Mean Corpuscular HGB Conc 30.8 g/dL (30-55); Mean Corpuscular Hemoglobin 26.8 pg (27-33); Mean Corpuscular Volume 87.2 fl (85-98); Mean Platelet Volume 11.1 fL (7.4-10.4); Monocytes # 0.5 10^3/uL (0.2-0.9); Monocytes % 5.7 %; Neutrophils # 4.24 10^3/uL (1.8-7.7); Neutrophils % 52.2 %; Nucleated Red Blood Cells % 0 %; Platelet Count 192 10^3/cmm (157-399); Red Blood Count 4.06 10^6/uL (3.85-5.65); Red Cell Distribution Width 12.8 % (12.1-15.1); White Blood Count 8.12 10^3/uL (3.29-11.43)
--- NOTE | 2024-11-05 01:59 | USR_ITS ---
PROCEDURE INFORMATION: Exam: US First Trimester, Transabdominal and US , Transvaginal Exam date and time: 11/05/2024 3:09 AM Age: 34 years old Clinical indication: Lmp or gestational age (in weeks): 11w3d; Antepartum complications; Bleeding; Prior surgery; Surgery date: 6+ months; Surgery type: D&c; Additional info: Positive , heavy vaginal bleeding, probable miscarr LABS AND CLINICAL REPORTS: Gestational age (Established): 11 w 3 d Estimated due date (Established): 05/24/2025 TECHNIQUE: Imaging protocol: Real-time transabdominal obstetrical ultrasound of the maternal pelvis and a first trimester , less than 14 weeks 0 days, with image documentation. Transvaginal imaging was used for better evaluation of the fetus, adnexa, and/or cervix. COMPARISON: US OB >= 14 weeks fetus [id number] 05/29/2021 1:53 PM FINDINGS: GESTATION: Gestation: Gestational sac not seen. MATERNAL: Uterus: Unremarkable. Cervix: Complex debris is seen within the endocervical canal. Cervix appears partially open. Right ovary/adnexa: Right ovary is unremarkable. Left ovary/adnexa: Left ovary is not seen. Intraperitoneal space: Trace amount of fluid within the cul-de-sac. US/US OB <=14 wk fetus w transvag IMPRESSION: 1. Findings are suspicious for miscarriage given absence of gestational sac and complex debris/likely hemorrhagic product within the endocervical canal, cervix appears open. 2. Retained products of conception is not excluded. 3. Close clinical follow-up is recommended.
--- NOTE | 2024-11-05 02:06 | PC.NURSE ---
0200: No heart tones required per Dr. Velazquez.
[2024-11-05 02:15] LABS: Alanine Aminotransferase 12 U/L (0-33); Albumin Level 4.4 g/dL (3.5-5.2); Alkaline Phosphatase 106 U/L (35-105); Anion Gap 16.7 (5-19); Aspartate Amino Transferase 15 U/L (0-32); Blood Urea Nitrogen 11 mg/dL (6-20); Calcium 9.2 mg/dL (8.5-10.5); Carbon Dioxide 24 mmol/L (22-29); Chloride 97 mmol/L (98-107); Creatinine Clr Calc Pharmacy 125.6003; Globulin 3.2 g/dL (1.3-4.6); Glomerular Filtration Rate 95.2 mL/min (90-130); Glucose 123 mg/dL (65-115); Osmolality Calculated 279 mOsm/kg (285-295); Potassium 3.7 mmol/L (3.5-5.1); Sodium 134 mmol/L (136-145); Total Bilirubin 0.2 mg/dL (0.15-1.2); Total Protein 7.6 g/dL (6.6-8.7)
[2024-11-05 03:35] LABS: Bilirubin Urine Negative (Negative); Blood Urine 3+ (Negative); Glucose Urine UA Negative (Normal); Ketones Urine Trace (Negative); Leukocyte Esterase Urine Negative (Negative); Nitrate Urine Negative (Negative); Protein Urine Negative (Negative); Specific Gravity, Urine 1.029 (1.005-1.030); Urine Appearance Clear (CLEAR); Urine Color Yellow (Yellow)
[2024-11-05 03:41] LABS: Add Urine Microscopic? YES; Bacteria Urine None Seen /hpf; Hyaline Casts Urine 0.81 /lpf; RBC Urine >100 /hpf (0-2); Squamous Epithelial Cell Urine 0-5 /hpf (0-5); WBC Urine 0-5 /hpf (0-5)
[2024-11-05 03:43] LABS: Add Urine Culture? Yes
== END 2024-11-05 05:13 | disposition home or self-care (01) ==
PROVIDERS: Emergency Provider Emergency Medicine; PCP Family Medicine
DX: O03.9 Complete or unspecified spontaneous abortion without complication (principal); F17.210 Nicotine dependence, cigarettes, uncomplicated
CPT/HCPCS: 36415; 76801; 76817; 80053; 81001; 84702; 85025; 86850; 86900; 87086; 99284